=== PATIENT | male | born 1985 | race African-American/Black ===

== ENCOUNTER 2022-05-30 17:01 | Emergency (ER) | payer MEDICAID ==
[~2022-05-30] VITALS: Ht 180.3 cm; Wt 80.6 kg
[2022-05-30 22:01] VITALS: BP 134/89
[2022-05-30] MEDS ORDERED: LIDOCAINE 1% HCL (LOCAL ANESTH.) INJ 20ML MDV ID ONE ×2 (22:30)
[2022-05-30] MEDS ORDERED: NEOMYCIN-BACITRACIN-POLYM UNITDOSE PKG TOP OINT TOP ONE (23:00)
== END 2022-05-30 23:15 | disposition home or self-care (01) ==
LOC: ER 17:01
DX: S61.212A Laceration without foreign body of right middle finger without damage to nail, initial encounter (principal); S61.214A Laceration without foreign body of right ring finger without damage to nail, initial encounter; W23.0XXA Caught, crushed, jammed, or pinched between moving objects, initial encounter; Y93.89 Activity, other specified; Y92.89 Other specified places as the place of occurrence of the external cause; Y99.8 Other external cause status
CPT/HCPCS: 12002; 73140; 99283; J2001